=== PATIENT | male | born 1950 | race Caucasian/White ===

== ENCOUNTER → 2017-09-25 | Outpatient (CLI) | payer MEDICARE ==
[2017-09-25 14:50] LABS: Blood Urea Nitrogen 19 mg/dL (9-20); Non-African American GFR(MDRD) >60 (>60 ml/min/1.73 sqM)
--- NOTE | 2017-09-25 17:10 | CT ---
EXAMINATION TYPE: CT abdomen pelvis w con DATE OF EXAM: 09/25/2017 COMPARISON: 10/18/2015 HISTORY: 67-year-old male with generalized pain with bowel changes TECHNIQUE: Contiguous axial scanning of the abdomen and pelvis following administration of 100 ml Omn ipaque 300 IV contrast. Delayed images through the kidneys and coronal/sagittal reconstructions perf ormed. CT DLP: 2555 mGycm Automated exposure control for dose reduction was used. FINDINGS: The heart is normal size without pericardial effusion. Chronic scarring and volume loss at the medial lung bases with associated mild bronchiectasis. No pleural effusion. Stable 2.4 cm hypodense lesion peripheral right liver. Stability suggests a benign etiology. Portal v enous system is patent. No biliary ductal dilatation. Cholecystectomy clips are present. Stable 1.7 cm left adrenal nodule. Right adrenal gland, kidneys, and spleen appear within normal limi ts. Splenomegaly 17.1 cm is unchanged. No dilated small bowel, free fluid, or free air. Mild sigmoid diverticulosis. No pericolonic inflammatory change. No mesenteric or retroperitoneal lymphadenopathy. Bladder is urine distended. Prostate gland mildly enlarged at 6.0 cm wide. No abnormal fluid collecti on in the pelvis or pelvic lymphadenopathy. Bones: Degenerative changes at the hips and degenerative bridging ankylosis at the SI joints. Degener ative disc disease mid to lower lumbar spine. No osseous destructive process. IMPRESSION: 1. STABLE 2.4 CM LESION RIGHT LIVER LOBE. STABILITY SUGGESTS A BENIGN ETIOLOGY. SCLEROSED HEMANGIOMA REMAINS THE FAVORED DIFFERENTIAL. 2. MILD SIGMOID DIVERTICULOSIS WITHOUT ACUTE DIVERTICULITIS. 3. UNCHANGED SPLENOMEGALY. 4. PROSTATOMEGALY (6.0 CM) AND STABLE 1.7 CM LEFT ADRENAL ADENOMA.
== END | disposition home or self-care (01) ==
LOC: RADCTMAIN 14:08
PROVIDERS: ATTEND Family Medicine
DX: D35.02 Benign neoplasm of left adrenal gland (principal); N40.0 Benign prostatic hyperplasia without lower urinary tract symptoms; K76.89 Other specified diseases of liver; K57.30 Diverticulosis of large intestine without perforation or abscess without bleeding; R16.1 Splenomegaly, not elsewhere classified
CPT/HCPCS: 82565; 84520; 74177; 36415; Q9967

== ENCOUNTER 2019-04-02 16:45 | Inpatient (IN) | payer MEDICARE ==
[2019-04-02] MEDS ORDERED: cefTRIAXone IN SWFI 1,000 MG/10 ML SYRINGE IVP STA (17:56)
--- NOTE | 2019-04-02 18:35 | XR ---
EXAMINATION TYPE: XR foot complete bilateral DATE OF EXAM: 04/02/2019 COMPARISON: NONE HISTORY: Foot infection TECHNIQUE: 3 views each foot FINDINGS: There is narrowing and spurring at the first MP joints bilaterally. There is some spurring at the right second MP joint. Metatarsals are intact. I see no fracture nor dislocation. There is a l arge left side Achilles calcaneal spur. There are small left-sided plantar calcaneal spur. There is s imilar change on the right side also. There is vascular calcification. IMPRESSION: Osteoarthritis. Vascular calcification. No fracture. No evidence of osteomyelitis.
[2019-04-02 18:40] LABS: Basophils # (A) 0.1 k/uL (0-0.2); Basophils % (A) 1 %; Eosinophils # (A) 0.3 k/uL (0-0.7); Eosinophils % (A) 4 %; HCT 44.8 % (39.0-53.0); HGB 14.9 gm/dL (13.0-17.5); Lymphocytes # (A) 1.9 k/uL (1.0-4.8); Lymphocytes % (A) 22 %; MCH 28.9 pg (25.0-35.0); MCHC 33.3 g/dL (31.0-37.0); MCV 86.7 fL (80.0-100.0); Mean Platelet Volume 7.2; Monocytes # (A) 0.4 k/uL (0-1.0); Monocytes % (A) 5 %; Neutrophils # (A) 5.6 k/uL (1.3-7.7); Neutrophils % (A) 67 %; Platelet Count 174 k/uL (150-450); Poikilocytosis Slight; RBC 5.17 m/uL (4.30-5.90); RDW 15.4 % (11.5-15.5); WBC 8.4 k/uL (3.8-10.6)
[2019-04-02 18:59] LABS: ALT 33 U/L (21-72); AST 25 U/L (17-59); Albumin 3.9 g/dL (3.5-5.0); Alkaline Phosphatase 105 U/L (38-126); Anion Gap 7 mmol/L; Blood Urea Nitrogen 16 mg/dL (9-20); Calcium 9.5 mg/dL (8.4-10.2); Carbon Dioxide 33 mmol/L (22-30); Chloride 102 mmol/L (98-107); Glucose 138 mg/dL (74-99); Potassium 4.1 mmol/L (3.5-5.1); Sodium 142 mmol/L (137-145); Total Bilirubin 0.9 mg/dL (0.2-1.3); Total Protein 6.8 g/dL (6.3-8.2)
--- NOTE | 2019-04-02 19:19 | ED ---
Extremity Problem HPI - General Chief complaint: Extremity Problem,Nontraumatic Stated complaint: Infection Time Seen by Provider: 04/02/19 17:39 Source: patient Mode of arrival: wheelchair Limitations: physical limitation - History of Present Illness Initial comments: 68-year-old male patient presents to the emergency department today sent by his property administrator for evaluation of wounds to the bilateral feet. Patient states he has had the wounds to both heels for over a month. Patient states he has been receiving wound care from his property administrator. States that they sent him in due to worsening of the wounds, and seeming infection of the wounds. Patient states he does have mild discomfort to both heels. Denies any fever or chills with this. Denies any significant swelling to the feet. Patient states he has been having yellow discharge present on both dressings. Patient does have history of diabetes. Patient denies any recent rash, shortness breath, chest pain, abdominal pain, nausea, vomiting, diarrhea, constipation, back pain, numbness, tingling, dizziness, weakness, hematuria, dysuria, urinary urgency, urinary frequency, headache, visual changes, or any other complaints. - Related Data Home Medications Medication Instructions Recorded Confirmed Allopurinol 300 mg PO HS 11/13/15 04/02/19 Glimepiride [Amaryl] 4 mg PO BID 11/13/15 04/02/19 metFORMIN HCL 1,000 mg PO BID 11/13/15 04/02/19 Aspirin 81 mg PO HS 04/02/19 04/02/19 Atorvastatin [Lipitor] 40 mg PO HS 04/02/19 04/02/19 Ergocalciferol (Vitamin D2) 50,000 unit PO Q30D 04/02/19 04/02/19 [Vitamin D2] Furosemide [Lasix] 40 mg PO DAILY 04/02/19 04/02/19 HYDROcodone/APAP 5-325MG [[place] 1 tab PO DAILY PRN 04/02/19 04/02/19 5-325] L.acidoph,Paracasei, B.lactis 1 cap PO DAILY 04/02/19 04/02/19 [Probiotic] Lisinopril 40 mg PO HS 04/02/19 04/02/19 Unknown Insulin 1 dose SQ DIRECTED 04/02/19 04/02/19 Allergies Allergy/AdvReac Type Severity Reaction Status Date / Time Horse/Equine Containing Allergy Unknown Verified 04/02/19 18:42 Products Childhood Review of Systems ROS Statement: Those systems with pertinent positive or pertinent negative responses have been documented in the HPI. ROS Other: All systems not noted in ROS Statement are negative. Past Medical History Past Medical History: Diabetes Mellitus, Hypertension Additional Past Medical History / Comment(s): gout, PALPITATIONS, PSORIASES History of Any Multi-Drug Resistant Organisms: None Reported Past Surgical History: Orthopedic Surgery Additional Past Surgical History / Comment(s): ermias hand- TENDON/LIGAMENT SX ,LT knee scope Past Anesthesia/Blood Transfusion Reactions: No Reported Reaction Past Psychological History: No Psychological Hx Reported Smoking Status: Never smoker Past Alcohol Use History: Occasional Past Drug Use History: None Reported - Past Family History Father Additional Family Medical History / Comment(s): emphysema Mother Additional Family Medical History / Comment(s): age 92 from old old General Exam Limitations: physical limitation General appearance: alert, in no apparent distress, other (Physical well- developed, well-nourished adult male patient in no acute distress. Vital signs upon presentation are temperature 98.3F, pulse 92, respirations 18, blood pressure 152/84, pulse ox 96% on room air.) Eye exam: Present: normal appearance, PERRL, EOMI. Absent: scleral icterus, conjunctival injection, periorbital swelling ENT exam: Present: normal exam, normal oropharynx, mucous membranes moist Respiratory exam: Present: normal lung sounds bilaterally. Absent: respiratory distress, wheezes, rales, rhonchi, stridor Cardiovascular Exam: Present: regular rate, normal rhythm, normal heart sounds. Absent: systolic murmur, diastolic murmur, rubs, gallop, clicks GI/Abdominal exam: Present: soft, normal bowel sounds. Absent: distended, tenderness, guarding, rebound, rigid Extremities exam: Present: normal inspection, full ROM, normal capillary refill, other (There are ulcers noted to bilateral heels. Basilar block at the center. There is yellow discharge noted from both. Remainder of skin is pink, warm, dry. Cap refills less than 3 seconds. Pedal pulses 2+ and equal bilaterally.). Absent: tenderness, pedal edema, joint swelling, calf tenderness Neurological exam: Present: alert, oriented X3, CN II-XII intact Psychiatric exam: Present: normal affect, normal mood Skin exam: Present: warm, dry, intact, normal color. Absent: rash Course Vital Signs 04/02/19 04/02/19 17:07 20:23 Temperature 98.3 F 98.1 F Pulse Rate 92 99 Respiratory 18 18 Rate Blood Pressure 152/84 164/88 O2 Sat by Pulse 96 98 Oximetry Medical Decision Making - Medical Decision Making 68-year-old male patient presented to the emergency department today for evaluation of wounds to the bilateral heels. Patient was sent by his property administrator for admission and IV antibiotics or worsening of the wounds and infection. Labs reviewed and are unremarkable. Patient was started on Rocephin. We'll admit for evaluation by wound care and continued antibiotics. - Lab Data Result diagrams: 04/02/19 18:23 04/02/19 18:23 Lab Results 04/02/19 04/02/19 Range/Units 18:23 18:23 WBC 8.4 (3.8-10.6) k/uL RBC 5.17 (4.30-5.90) m/uL Hgb 14.9 (13.0-17.5) gm/dL Hct 44.8 (39.0-53.0) % MCV 86.7 (80.0-100.0) fL MCH 28.9 (25.0-35.0) pg MCHC 33.3 (31.0-37.0) g/dL RDW 15.4 (11.5-15.5) % Plt Count 174 (150-450) k/uL Neutrophils % 67 % Lymphocytes % 22 % Monocytes % 5 % Eosinophils % 4 % Basophils % 1 % Neutrophils # 5.6 (1.3-7.7) k/uL Lymphocytes # 1.9 (1.0-4.8) k/uL Monocytes # 0.4 (0-1.0) k/uL Eosinophils # 0.3 (0-0.7) k/uL Basophils # 0.1 (0-0.2) k/uL Poikilocytosis Slight Sodium 142 (137-145) mmol/L Potassium 4.1 (3.5-5.1) mmol/L Chloride 102 (98-107) mmol/L Carbon Dioxide 33 H (22-30) mmol/L Anion Gap 7 mmol/L BUN 16 (9-20) mg/dL Creatinine 0.58 L (0.66-1.25) mg/dL Est GFR (CKD-EPI)AfAm >90 (>60 ml/min/1.73 sqM) Est GFR (CKD-EPI)NonAf >90 (>60 ml/min/1.73 sqM) Glucose 138 H (74-99) mg/dL Calcium 9.5 (8.4-10.2) mg/dL Total Bilirubin 0.9 (0.2-1.3) mg/dL AST 25 (17-59) U/L ALT 33 (21-72) U/L Alkaline Phosphatase 105 (38-126) U/L Total Protein 6.8 (6.3-8.2) g/dL Albumin 3.9 (3.5-5.0) g/dL - Radiology Data Radiology results: report reviewed, image reviewed 3 views of each foot are obtained. Report was reviewed in its entirety. Impression by Dr. Morris shows osteoarthritis. Vascular calcification. No fracture. No evidence of osteomyelitis. Disposition Clinical Impression: Diabetic foot ulcers Disposition: [facility] Condition: Serious Decision to Admit Reason: Admit from EC Decision Date: 04/02/19 Decision Time: 19:45
[2019-04-02] MEDS ORDERED: NALOXONE 0.4 MG/ML 1 ML VIAL IV PRN (19:42)
--- NOTE | 2019-04-02 20:47 | HP ---
HISTORY AND PHYSICAL CHIEF COMPLAINT: Ulcers on the bottom of both heels. HISTORY OF PRESENT ILLNESS: This is the first admission for this 68-year-old obese white male. He has type 2 diabetes mellitus with poor control, and up until recently he has been quite noncompliant. He has always been overweight. He was referred to a business line manager recently for foot care, where he was found to have tinea pedis and onychomycosis. He was also found to have diabetic ulcers on the bottom of each heel, and they were being addressed by the business line manager until he saw them getting worse and sent him to the ER. REVIEW OF SYSTEMS: He has had no fever, chills, particularly unusual pain, etc. He does have sensation in the heels. He has had no headaches, CVAs, shortness of breath, chest pain, heart disease, abdominal pain, renal failure, etc. Past medical history, family history, and personal and social histories reveal that he is on: 1. Allopurinol. 2. Aspirin. 3. Lasix. 4. Vicodin. 5. Lisinopril. He does not smoke or drink. He used to drink heavily. PHYSICAL EXAMINATION: Blood pressure is 152/84, pulse 92, respirations of 18 and temperature is 98.3. In general he appeared to be slightly overweight and in no acute distress. Skin color was normal. Skin was warm and dry. Lymph nodes were not enlarged. Head, ears, eyes, nose, mouth and throat were normal. Neck veins were not distended. Thyroid was not enlarged. CHEST: Clear. Cardiac exam was normal. The abdomen was protuberant, soft, nontender. Extremities demonstrated scaly dermatitis of the feet with onychomycosis and two large stage IV decubitus ulcers on the bottom on each heel. Peripheral circulation appeared to be adequate. Neurologically he was intact. He is admitted to the hospital with the diagnoses: 1. Stage IV diabetic ulcers on the bottom of each heel. 2. Hypertension. 3. Type 2 diabetes mellitus. PLAN: 1. Bed rest. 2. IV fluids. 3. IV antibiotics. 4. Infectious disease and vascular surgery consults. MMODL / IJN: [id number] /
[2019-04-02] MEDS ORDERED: INSULIN ASPART (NovoLOG) 100 UNIT/ML VIAL SQ SCH (21:00)
[2019-04-02] MEDS: ASPIRIN 81 MG PO SCH (21:33)
[2019-04-02] MEDS: ALLOPURINOL 300 MG TAB PO SCH (21:33)
[2019-04-02] MEDS: LISINOPRIL 20 MG TAB PO SCH (21:34)
[2019-04-02 21:59] LABS: Glucose,Whole Blood 142 mg/dL (75-99)
[2019-04-02] MEDS: INSULIN ASPART (NovoLOG) 100 UNIT/ML VIAL SQ SCH (21:59)
[2019-04-03 07:11] LABS: Glucose,Whole Blood 133 mg/dL (75-99)
[2019-04-03] MEDS: FUROSEMIDE 40 MG TAB PO SCH (08:22)
[2019-04-03] MEDS: INSULIN ASPART (NovoLOG) 100 UNIT/ML VIAL SQ SCH ×4 (08:25→20:27)
--- NOTE | 2019-04-03 10:52 | P.GSCN ---
History of Present Illness Consult date: 04/03/19 Reason for Consult: Bilateral diabetic foot ulcers Requesting physician: Octavio Cottrell History of present illness: This 68-year-old diabetic male was under treatment for athlete's foot. 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 He stayed in his foot bath for an hour and a half with pressure on his heels. He subsequently developed necrotic areas on the plantar aspect of both heels. His description of his diabetes sounds like his control is fairly poor. He states his blood sugars are under 170 generally but his hemoglobin A1c levels are high. He denies pain. These ulcers have been present for over a month. Review of Systems All systems: negative - Constitutional Denies fever, Denies weight loss - EENT Eyes: denies blurred vision Ears, nose, mouth and throat: Denies dysphagia - Cardiovascular Denies chest pain, Denies shortness of breath - Respiratory Denies cough, Denies 7 - Gastrointestinal Reports as per HPI - Genitourinary Denies dysuria, Denies hematuria - Musculoskeletal Musculoskeleta Comment(s): Diabetic neuropathy - Integumentary Denies rash, Denies unusual bruising - Neurological Neurologic Comment(s): Bilateral diabetic foot neuropathy Reports sensory deficit, Denies headaches, Denies syncope - Hematologic/Lymphatic Denies easy bleeding, Denies easy bruising Past Medical History Past Medical History: Diabetes Mellitus, Hyperlipidemia, Hypertension Additional Past Medical History / Comment(s): gout, PALPITATIONS, PSORIASES History of Any Multi-Drug Resistant Organisms: None Reported Past Surgical History: Cholecystectomy, Orthopedic Surgery Additional Past Surgical History / Comment(s): ermias hand- TENDON/LIGAMENT SX ,LT knee scope Past Anesthesia/Blood Transfusion Reactions: No Reported Reaction Past Psychological History: No Psychological Hx Reported Smoking Status: Never smoker Past Alcohol Use History: Occasional Past Drug Use History: None Reported - Past Family History Father Additional Family Medical History / Comment(s): emphysema Mother Additional Family Medical History / Comment(s): age 92 from old old Medications and Allergies Home Medications Medication Instructions Recorded Confirmed Type Allopurinol 300 mg PO HS 11/13/15 04/02/19 History Glimepiride [Amaryl] 4 mg PO BID 11/13/15 04/02/19 History metFORMIN HCL 1,000 mg PO BID 11/13/15 04/02/19 History Aspirin 81 mg PO HS 04/02/19 04/02/19 History Atorvastatin [Lipitor] 40 mg PO HS 04/02/19 04/02/19 History Ergocalciferol (Vitamin D2) 50,000 unit PO Q30D 04/02/19 04/02/19 History [Vitamin D2] Furosemide [Lasix] 40 mg PO DAILY 04/02/19 04/02/19 History HYDROcodone/APAP 5-325MG [[place] 1 tab PO DAILY PRN 04/02/19 04/02/19 History 5-325] L.acidoph,Paracasei, B.lactis 1 cap PO DAILY 04/02/19 04/02/19 History [Probiotic] Lisinopril 40 mg PO HS 04/02/19 04/02/19 History Semaglutide [Ozempic] 0.25 mg SQ Q7D 04/03/19 04/03/19 History Allergies Allergy/AdvReac Type Severity Reaction Status Date / Time Horse/Equine Containing Allergy Unknown Verified 04/02/19 18:42 Products Childhood Surgical - Exam Osteopathic Statement: *. No significant issues noted on an osteopathic struct ural exam other than those noted in the History and Physical/Consult. Vital Signs Temp Pulse Resp BP Pulse Ox 98.3 F 92 18 152/84 96 04/02/19 17:07 04/02/19 17:07 04/02/19 17:07 04/02/19 17:07 04/02/19 17:07 - General well developed, well nourished, no distress, obese - Eyes normal ocular movement, no icteric - ENT no hearing loss, no congestion - Neck no masses, no bruits, trachea midline - Respiratory normal expansion, normal respiratory effort, clear to auscultation - Cardiovascular Rhythm: regular - Abdomen Abdomen: soft, non tender, no guarding, no rigid, no rebound - Integumentary Ulcers on the plantar aspect of both heels. Both are about 7 x 5 cm in diameter. There is significant eschar and nonviable tissue. no rash, no abnormal pigmentation - Neurologic no disoriented, no combative - Psychiatric oriented to time, oriented to person, oriented to place, speech is normal, memory intact Results - Labs 04/02/19 18:23 04/02/19 18:23 Abnormal Lab Results - Last 24 Hours (Table) 04/02/19 04/02/19 04/03/19 Range/Units 18:23 21:57 07:10 Carbon Dioxide 33 H (22-30) mmol/L Creatinine 0.58 L (0.66-1.25) mg/dL Glucose 138 H (74-99) mg/dL POC Glucose (mg/dL) 142 H 133 H (75-99) mg/dL Microbiology - Last 24 Hours (Table) 04/02/19 18:52 Gram Stain - Preliminary Foot - Left Wound Culture - Preliminary 04/02/19 18:52 Gram Stain - Preliminary Foot - Right Wound Culture - Preliminary Diabetes panel 04/02/19 Range/Units 18:23 Sodium 142 (137-145) mmol/L Potassium 4.1 (3.5-5.1) mmol/L Chloride 102 (98-107) mmol/L Carbon Dioxide 33 H (22-30) mmol/L BUN 16 (9-20) mg/dL Creatinine 0.58 L (0.66-1.25) mg/dL Glucose 138 H (74-99) mg/dL Calcium 9.5 (8.4-10.2) mg/dL AST 25 (17-59) U/L ALT 33 (21-72) U/L Alkaline Phosphatase 105 (38-126) U/L Total Protein 6.8 (6.3-8.2) g/dL Albumin 3.9 (3.5-5.0) g/dL Calcium panel 04/02/19 Range/Units 18:23 Calcium 9.5 (8.4-10.2) mg/dL Albumin 3.9 (3.5-5.0) g/dL Pituitary panel 04/02/19 Range/Units 18:23 Sodium 142 (137-145) mmol/L Potassium 4.1 (3.5-5.1) mmol/L Chloride 102 (98-107) mmol/L Carbon Dioxide 33 H (22-30) mmol/L BUN 16 (9-20) mg/dL Creatinine 0.58 L (0.66-1.25) mg/dL Glucose 138 H (74-99) mg/dL Calcium 9.5 (8.4-10.2) mg/dL Adrenal panel 04/02/19 Range/Units 18:23 Sodium 142 (137-145) mmol/L Potassium 4.1 (3.5-5.1) mmol/L Chloride 102 (98-107) mmol/L Carbon Dioxide 33 H (22-30) mmol/L BUN 16 (9-20) mg/dL Creatinine 0.58 L (0.66-1.25) mg/dL Glucose 138 H (74-99) mg/dL Calcium 9.5 (8.4-10.2) mg/dL Total Bilirubin 0.9 (0.2-1.3) mg/dL AST 25 (17-59) U/L ALT 33 (21-72) U/L Alkaline Phosphatase 105 (38-126) U/L Total Protein 6.8 (6.3-8.2) g/dL Albumin 3.9 (3.5-5.0) g/dL Assessment and Plan (1) Diabetic foot ulcer associated with type 2 diabetes mellitus Current Visit: Yes Status: Acute Code(s): E11.621 - TYPE 2 DIABETES MELLITUS WITH FOOT ULCER; L97.509 - NON-PRESSURE CHRONIC ULCER OTH PRT UNSP FOOT W UNSP SEVERITY SNOMED Code(s): 613008415 (2) Pressure ulcer of right foot, stage 3 Current Visit: Yes Status: Acute Code(s): L89.893 - PRESSURE ULCER OF OTHER SITE, STAGE 3 SNOMED Code(s): 297208268 (3) Pressure ulcer of left foot, stage 3 Current Visit: Yes Status: Acute Code(s): L89.893 - PRESSURE ULCER OF OTHER SITE, STAGE 3 SNOMED Code(s): 570058883 (4) Obesity (BMI 30-39.9) Current Visit: Yes Status: Acute Code(s): E66.9 - OBESITY, UNSPECIFIED SNOMED Code(s): 959313877 Plan: I discussed with the patient multiple issues involved in his healing process. #1 we will need to debridement both feet. We will start with Santyl dressing to soften them and will need to in the near future proceed with surgical debridement. #2 we will need to figure out a way to achieve offloading on both heels. He will need to exercise most of his mobility in a wheelchair. Any activities such as going to the bathroom will need to try to limit pressure to both forefeet. We may consider bilateral total contact casts. This would require significant help with any transferring and he would not be able to drive at all. Another option would be to focus on one heel at a time. However, the size of these ulcers means that the healing of each will require at least 2-3 months. We discussed the correlation of these ulcers with his diabetes and his obesity. We've recommended he follow with primary care for attention to both of these issues. We will also get arterial Dopplers to assess vascular status. He has a palpable pulse on his left foot but nonpalpable on the right.
[2019-04-03 12:39] LABS: Glucose,Whole Blood 227 mg/dL (75-99)
[2019-04-03] MEDS: COLLAGENASE 250 UNIT/GM OINTMENT 30 GM TUBE TOPICAL SCH (12:50)
[2019-04-03 13:28] VITALS: BMI 37.2
--- NOTE | 2019-04-03 17:24 | P.CONS ---
History of Present Illness - Reason for Consult Consult date: 04/03/19 - Chief Complaint foot ulcers - History of Present Illness 68-year-old male who has multiple medical troubles including a long- standing history of diabetes was having difficulties with his feet. He was seen by his spout tender and was told that he could soak his feet for short periods of time to help soften his calluses. The patient had a foot bath and soaked his feet for about an hour and a half, he was watching TV. He has significant neuropathy and didn't realize any acute cause significant injury to his bilateral heels from the way he was sitting. He has developed eschars the bila teral heel area and with some cellulitis who presents to Hospital for further intervention. The patient this time has no pain at the area because he is insensate. And he is denying high-grade fevers chills rigors or sweats at this time. Review of Systems HEENT patient denies sinus her mouth discomfort. No dysphagia. No oral pain. No neck stiffness or lymphadenopathy Lungs patient denies shortness of breath cough or sputum production no hemoptysis Heart patient denies chest pain or pressure. He is not having dyspnea on exertion, orthopnea, or syncope Abdomen patient denies abdominal pain, denies nausea vomiting constipation or diarrhea. Denies hematemesis melena or hematochezia Extremities patient denies pain or swelling to the upper extremities. Patient as per the history of present illness has difficulties with the ulcerations to the bilateral heels but does not have ongoing difficulties with edema Neuro patient denies dizziness, or new deficits Past Medical History Past Medical History: Diabetes Mellitus, Hyperlipidemia, Hypertension Additional Past Medical History / Comment(s): gout, PALPITATIONS, PSORIASES History of Any Multi-Drug Resistant Organisms: None Reported Past Surgical History: Cholecystectomy, Orthopedic Surgery Additional Past Surgical History / Comment(s): ermias hand- TENDON/LIGAMENT SX ,LT knee scope Past Anesthesia/Blood Transfusion Reactions: No Reported Reaction Past Psychological History: No Psychological Hx Reported Additional Psychological History / Comment(s): single and lives independently. retired from manufacturing. No experience. no animals. Not a current tobacco smoker. No international travel. 1 adult child Smoking Status: Never smoker Past Alcohol Use History: Occasional Past Drug Use History: None Reported - Past Family History Father Additional Family Medical History / Comment(s): emphysema Mother Additional Family Medical History / Comment(s): age 92 from old old Medications and Allergies Home Medications and Allergies Comment(s): Current Medications Hydrocodone Bitart/Acetaminophen (Mohawk 5-325) 1 each PO DAILY PRN PRN Reason: Pain Allopurinol (Zyloprim) 300 mg PO [facility] Last Admin: 04/02/19 21:33 Dose: Not Given Documented by: Aspirin (Aspirin) 81 mg PO [facility] Last Admin: 04/02/19 21:33 Dose: Not Given Documented by: Collagenase (Santyl) 1 applic TOPICAL DAILY [facility] Last Admin: 04/03/19 12:50 Dose: 1 applic Documented by: Furosemide (Lasix) 40 mg PO DAILY [facility] Last Admin: 04/03/19 08:22 Dose: 40 mg Documented by: Insulin Aspart (Novolog) 0 unit SQ [facility]; Protocol Last Admin: 04/03/19 12:50 Dose: 5 unit Documented by: Lisinopril (Zestril) 40 mg PO [facility] Last Admin: 04/02/19 21:34 Dose: Not Given Documented by: Naloxone HCl (Narcan) 0.2 mg IV Q2M PRN PRN Reason: Opioid Reversal Home Medications Medication Instructions Recorded Confirmed Type Allopurinol 300 mg PO HS 11/13/15 04/02/19 History Glimepiride [Amaryl] 4 mg PO BID 11/13/15 04/02/19 History metFORMIN HCL 1,000 mg PO BID 11/13/15 04/02/19 History Aspirin 81 mg PO HS 04/02/19 04/02/19 History Atorvastatin [Lipitor] 40 mg PO HS 04/02/19 04/02/19 History Ergocalciferol (Vitamin D2) 50,000 unit PO Q30D 04/02/19 04/02/19 History [Vitamin D2] Furosemide [Lasix] 40 mg PO DAILY 04/02/19 04/02/19 History HYDROcodone/APAP 5-325MG [Mohawk 1 tab PO DAILY PRN 04/02/19 04/02/19 History 5-325] L.acidoph,Paracasei, B.lactis 1 cap PO DAILY 04/02/19 04/02/19 History [Probiotic] Lisinopril 40 mg PO HS 04/02/19 04/02/19 History Semaglutide [Ozempic] 0.25 mg SQ Q7D 04/03/19 04/03/19 History Allergies Allergy/AdvReac Type Severity Reaction Status Date / Time Horse/Equine Containing Allergy Unknown Verified 04/02/19 18:42 Products Childhood Physical Exam Vitals: Vital Signs Temp Pulse Pulse Resp BP BP Pulse Ox 04/03/19 13:17 97.8 F 108 H 16 180/96 93 L 04/03/19 04:48 97.6 F 102 H 16 159/84 94 L 04/02/19 21:26 98.1 F 101 H 161/85 96 04/02/19 20:23 98.1 F 99 18 164/88 98 Intake and Output 04/03/19 04/03/19 04/03/19 06:59 14:59 22:59 Intake Total 590 Balance 590 Intake: Oral 590 Other: # Voids 1 2 # Bowel Movements 1 Weight 131.542 kg HEENT: Anicteric, conjunctiva are pink and moist, nasal or oral mucosa are without lesion. The neck is supple without lymphadenopathy or thyromegaly. No oral thrush is noted. Lungs: good bilateral air entry, there are no significant crackles or wheezes, no bronchial sounds or egophony. Heart: Regular rate and rhythm with an audible S1-S2, no S3 or S4 noted. No significant murmur click or rub noted. Abdomen: Positive bowel sounds, soft and nontender, there is no palpable masses or organomegaly. Abdomen is without guarding or rebound. Extremities:Upper extremities reveal evidence of equal pulses, no lesions are seen, no petechiae or telangiectasia. The lower extremities have no significant edema, peripheral pulses were 2+ and symmetric, Capillary refill was brisk. Skin: evidence of the bilateral heel ulcerations, approximately 4 x 4 centimeters both heels with eschar in place some surrounding erythema is seen Neuro:Awake and alert, oriented to person place and time. No gross focal sensory motor deficits noted. Musculoskeletal: Patient is ambulatory No acute joint effusions are noted. Lymph: No cervical, supraclavicular, axillary, epitrochlear, or inguinal lymphadenopathy was noted. Results CBC & Chem 7: 04/02/19 18:23 04/02/19 18:23 Labs: Abnormal Lab Results - Last 24 Hours (Table) 04/02/19 04/02/19 04/03/19 Range/Units 18:23 21:57 07:10 Carbon Dioxide 33 H (22-30) mmol/L Creatinine 0.58 L (0.66-1.25) mg/dL Glucose 138 H (74-99) mg/dL POC Glucose (mg/dL) 142 H 133 H (75-99) mg/dL 04/03/19 Range/Units 12:38 Carbon Dioxide (22-30) mmol/L Creatinine (0.66-1.25) mg/dL Glucose (74-99) mg/dL POC Glucose (mg/dL) 227 H (75-99) mg/dL Microbiology - Last 24 Hours (Table) 04/02/19 18:52 Gram Stain - Preliminary Foot - Left Wound Culture - Preliminary 04/02/19 18:52 Gram Stain - Preliminary Foot - Right Wound Culture - Preliminary Laboratory Results WBC 8.4 k/uL (3.8-10.6) 04/02/19 18:23 RBC 5.17 m/uL (4.30-5.90) 04/02/19 18:23 Hgb 14.9 gm/dL (13.0-17.5) 04/02/19 18:23 Hct 44.8 % (39.0-53.0) 04/02/19 18:23 MCV 86.7 fL (80.0-100.0) 04/02/19 18:23 MCH 28.9 pg (25.0-35.0) 04/02/19 18:23 MCHC 33.3 g/dL (31.0-37.0) 04/02/19 18:23 RDW 15.4 % (11.5-15.5) 04/02/19 18:23 Plt Count 174 k/uL (150-450) 04/02/19 18:23 Neutrophils % 67 % 04/02/19 18:23 Lymphocytes % 22 % 04/02/19 18:23 Monocytes % 5 % 04/02/19 18:23 Eosinophils % 4 % 04/02/19 18:23 Basophils % 1 % 04/02/19 18:23 Neutrophils # 5.6 k/uL (1.3-7.7) 04/02/19 18:23 Lymphocytes # 1.9 k/uL (1.0-4.8) 04/02/19 18:23 Monocytes # 0.4 k/uL (0-1.0) 04/02/19 18:23 Eosinophils # 0.3 k/uL (0-0.7) 04/02/19 18:23 Basophils # 0.1 k/uL (0-0.2) 04/02/19 18:23 Poikilocytosis Slight 04/02/19 18:23 Sodium 142 mmol/L (137-145) 04/02/19 18:23 Potassium 4.1 mmol/L (3.5-5.1) 04/02/19 18:23 Chloride 102 mmol/L (98-107) 04/02/19 18:23 Carbon Dioxide 33 mmol/L (22-30) H 04/02/19 18:23 Anion Gap 7 mmol/L 04/02/19 18:23 BUN 16 mg/dL (9-20) 04/02/19 18:23 Creatinine 0.58 mg/dL (0.66-1.25) L 04/02/19 18:23 Est GFR (CKD-EPI)AfAm >90 (>60 ml/min/1.73 sqM) 04/02/19 18:23 Est GFR (CKD-EPI)NonAf >90 (>60 ml/min/1.73 sqM) 04/02/19 18:23 Glucose 138 mg/dL (74-99) H 04/02/19 18:23 POC Glucose (mg/dL) 227 mg/dL (75-99) H 04/03/19 12:38 POC Glu Law Enforcement Officer ID [place] 04/03/19 12:38 Calcium 9.5 mg/dL (8.4-10.2) 04/02/19 18:23 Total Bilirubin 0.9 mg/dL (0.2-1.3) 04/02/19 18:23 AST 25 U/L (17-59) 04/02/19 18:23 ALT 33 U/L (21-72) 04/02/19 18:23 Alkaline Phosphatase 105 U/L (38-126) 04/02/19 18:23 Total Protein 6.8 g/dL (6.3-8.2) 04/02/19 18:23 Albumin 3.9 g/dL (3.5-5.0) 04/02/19 18:23 Microbiology 04/02/19 18:52 Foot - Left Gram Stain - Preliminary 04/02/19 18:52 Foot - Left Wound Culture - Preliminary 04/02/19 18:52 Foot - Right Gram Stain - Preliminary 04/02/19 18:52 Foot - Right Wound Culture - Preliminary Assessment and Plan (1) Diabetic foot ulcer associated with type 2 diabetes mellitus Narrative/Plan: 68-year-old male presents to hospital with concerns to his feet because of the onset of bilateral heel ulcerations. As noted the patient soaked his feet for extended period of time and inadvertently caused ulcerations to his bilateral heels. These areas continue to give him difficulties and consequently sought care. He's been seen by vascular surgery. Agree with utilization of Santyl at t his time. Bone scan requested to evaluate for deeper infection. If the patient does have underlying osteomyelitis with the need a course of outpatient intravenous antibiotic therapy. This may be best accomplished in a rehabilitation facility so that he can receive wound care, offloading and antibiotic therapy. Baseline laboratories are requested. We will update his tetanus. Multivitamin requested. Current Visit: Yes Status: Acute Code(s): E11.621 - TYPE 2 DIABETES MELLITUS WITH FOOT ULCER; L97.509 - NON-PRESSURE CHRONIC ULCER OTH PRT UNSP FOOT W UNSP SEVERITY SNOMED Code(s): 714728108 (2) Poorly controlled type 2 diabetes mellitus with complication Current Visit: Yes Status: Acute Code(s): E11.8 - TYPE 2 DIABETES MELLITUS WITH UNSPECIFIED COMPLICATIONS; E11.65 - TYPE 2 DIABETES MELLITUS WITH HYPERGLYCEMIA SNOMED Code(s): 59715604
[2019-04-03] MEDS ORDERED: DIPH,PERTUS(ACELL)TETVAC-LF 0.5 ML VIAL IM ONE (17:25)
[2019-04-03 17:42] LABS: Glucose,Whole Blood 190 mg/dL (75-99)
[2019-04-03] MEDS ORDERED: SEMAGLUTIDE SQ SCH (18:00)
[2019-04-03] MEDS: AMPICILLIN-SULBACTAM 3 GM in SODIUM CHLORIDE 0.9% 100 ML IVPB SCH ×2 (18:18→23:20)
[2019-04-03] MEDS: MULTIVITAMINS, THERA 1 EACH TAB PO SCH (18:19)
--- NOTE | 2019-04-03 19:45 | PN ---
PROGRESS NOTE DATE OF SERVICE: 04/03/2019 CHIEF COMPLAINT: Diabetic ulcers on the bottom heels. HISTORY OF PRESENT ILLNESS: This gentleman is doing fairly well. He has been seen by Infectious Disease and Vascular Surgery. He is going for scans of the heels tomorrow. He has been told that Friday, the heels will be debrided and he will be in bilateral lower leg casts for several weeks. PHYSICAL EXAM: Chest is clear. Cardiac exam is normal. Abdomen is soft and nontender. IMPRESSION: 1. Large diabetic ulcers of the bottom of each heel. 2. Possible underlying osteomyelitis. 3. Hypertension. 4. Type 2 diabetes. PLAN: Continue to follow and manage diabetes in the meantime. MMODL / IJN: [id number] /
[2019-04-03 20:02] LABS: Glucose,Whole Blood 255 mg/dL (75-99)
[2019-04-03] MEDS: ALLOPURINOL 300 MG TAB PO SCH (20:27)
[2019-04-03] MEDS: ASPIRIN 81 MG PO SCH (20:27)
[2019-04-03] MEDS: LISINOPRIL 20 MG TAB PO SCH (20:27)
[2019-04-04] MEDS: AMPICILLIN-SULBACTAM 3 GM in SODIUM CHLORIDE 0.9% 100 ML IVPB SCH ×4 (06:17→23:54)
[2019-04-04 07:19] LABS: Glucose,Whole Blood 169 mg/dL (75-99)
[2019-04-04] MEDS: FUROSEMIDE 40 MG TAB PO SCH (07:57)
[2019-04-04] MEDS: MULTIVITAMINS, THERA 1 EACH TAB PO SCH (07:57)
[2019-04-04] MEDS: INSULIN ASPART (NovoLOG) 100 UNIT/ML VIAL SQ SCH ×4 (07:57→20:27)
--- NOTE | 2019-04-04 10:24 | NM ---
EXAMINATION TYPE: NM bone 3 phase DATE OF EXAM: 04/04/2019 COMPARISON: NONE HISTORY: Triple phase bone scintigraphy was performed following the injection of 23.6 mCi Tc 99m MDP. Immedia te images and 3 hours post injection images acquired. FINDINGS: Flow and pool images are essentially unremarkable. Delayed static images show increased activity in t he right first MTP joint and also several foci within the ankle joints bilaterally. No definite abnor mality is seen in the region of the right heel. There is minimal activity in the inferior calcaneus t his on the left. IMPRESSION: 1. I CANNOT EXCLUDE OSTEOMYELITIS IN THE LEFT CALCANEUS. 2. DEGENERATIVE CHANGE RIGHT FIRST MTP JOINT.
[2019-04-04 11:22] LABS: Glucose,Whole Blood 236 mg/dL (75-99)
[2019-04-04] MEDS: HYDROcodone/APAP 5-325MG 1 EACH TAB PO PRN (11:36)
[2019-04-04] MEDS: COLLAGENASE 250 UNIT/GM OINTMENT 30 GM TUBE TOPICAL SCH (13:47)
[2019-04-04 16:58] LABS: Glucose,Whole Blood 189 mg/dL (75-99)
--- NOTE | 2019-04-04 20:11 | PN ---
PROGRESS NOTE DATE OF SERVICE: 04/04/2019. CHIEF COMPLAINT: Diabetic ulcers of both heels and uncontrolled diabetes. HISTORY OF PRESENT ILLNESS: This gentleman is doing well. He is not having any pain. He is going tomorrow for debridement. Sugars are still high. PHYSICAL EXAM: Chest is clear. Cardiac exam is normal. Abdomen is protuberant and soft. IMPRESSION: 1. Diabetic ulcers of the heels (Staphylococcus). 2. Uncontrolled diabetes. PLAN: 1. Start Levemir. 2. Debridement of both heels tomorrow. MMODL / IJN: [id number] /
[2019-04-04] MEDS: ALLOPURINOL 300 MG TAB PO SCH (20:27)
[2019-04-04] MEDS: INSULIN DETEMIR (LEVEMIR) 100 UNIT/ML SYR SQ SCH (20:27)
[2019-04-04] MEDS: LISINOPRIL 20 MG TAB PO SCH (20:27)
[2019-04-04] MEDS: ASPIRIN 81 MG PO SCH (20:27)
[2019-04-04 20:30] LABS: Glucose,Whole Blood 235 mg/dL (75-99)
[2019-04-05] MEDS: AMPICILLIN-SULBACTAM 3 GM in SODIUM CHLORIDE 0.9% 100 ML IVPB SCH ×2 (06:04→12:39)
[2019-04-05 07:04] LABS: Glucose,Whole Blood 124 mg/dL (75-99)
[2019-04-05] MEDS: INSULIN ASPART (NovoLOG) 100 UNIT/ML VIAL SQ SCH ×4 (07:39→20:30)
[2019-04-05] MEDS: COLLAGENASE 250 UNIT/GM OINTMENT 30 GM TUBE TOPICAL SCH (07:59)
[2019-04-05] MEDS: FUROSEMIDE 40 MG TAB PO SCH (07:59)
[2019-04-05] MEDS: hydrALAZINE HCL 50 MG TAB PO SCH ×3 (07:59→20:31)
[2019-04-05] MEDS ORDERED: LACTATED RINGERS 1,000 ML IV ONE (10:27)
[2019-04-05 10:49] LABS: Glucose,Whole Blood 120 mg/dL (75-99)
[2019-04-05] MEDS ORDERED: PROPOFOL 10 MG/ML 20 ML VIAL IV ONE (11:04)
[2019-04-05] MEDS ORDERED: SUCCINYLCHOLINE CHLORIDE 100 MG/5 ML SYR IV ONE (11:04)
[2019-04-05] MEDS ORDERED: LIDOCAINE 1% INJ 10MG/ML (20 ML MDV) ONE (11:04)
[2019-04-05] MEDS ORDERED: fentaNYL (PF) 50 MCG/ML 2 ML AMP ONE (11:04)
[2019-04-05] MEDS ORDERED: MIDAZOLAM 2 MG/2 ML VIAL ONE (11:04)
[2019-04-05 12:35] LABS: Glucose,Whole Blood 130 mg/dL (75-99)
[2019-04-05] MEDS: MULTIVITAMINS, THERA 1 EACH TAB PO SCH (12:39)
--- NOTE | 2019-04-05 12:56 | PN ---
PROGRESS NOTE DATE OF SERVICE: 04/05/2019 CHIEF COMPLAINT: Bilateral diabetic heel ulcers. HISTORY OF PRESENT ILLNESS: This gentleman is doing well. He is not having a great deal of pain. He is going to be debrided today. PHYSICAL EXAM: Chest is clear. Cardiac exam is normal. The abdomen is protuberant and soft. IMPRESSION: 1. Bilateral plantar diabetic ulcers on the heels. 2. Type 2 insulin dependent diabetes mellitus. PLAN: Debridement of the ulcers on the heels today. MMODL / IJN: [id number] /
--- NOTE | 2019-04-05 15:22 | PCM.SQDEBR ---
Subcutaneous Debridement - Subcutaneous Debridement Date of Service: 04/05/19 Subcutaneous Debridement: Date of service: 04/05/2019 Surgeon: Josefa Pre-and postop diagnosis: Diabetic ulcers bilateral heels with pressure component Type of debridement: Excisional surgical, subcutaneous Chief complaint: ulcer of plantar aspect both heels Anesthesia: General anesthetic Signs of infection: Redness Other material in the wound that is expected to inhibit healing or promote adjacent tissue breakdown: As noted below Degree of epithelialization: [%] Method and instrument: Surgical debridement with scalpel Character of the wound after debridement: Bloody subcutaneous bed Description of necrotic material present: Eschar and necrotic skin and subcutaneous tissue Description of tissue removed: Same Pre-debridement measurement: Right, 4.3 x 3.9 left, 3.2 x 3.0 cm and both are 0.1 cm in depth Postoperative debridement measurement: Right 4.4 x 4, left, 3.5 x 3.1 cm and both are 0.3 cm in depth Specimens disposable only Control of bleeding:[Bleeding was easily controlled with saline moistened gauze and light pressure] Post debridement dressing: Silvadene and Dhaval wrap [Patient tolerated procedure well]
--- NOTE | 2019-04-05 15:26 | P.PN ---
Progress Note - Text Progress Note Date: 04/05/19 Today we performed a subcutaneous debridement removing the necrotic tissue and eschar from both heels. I have discussed in detail with the patient the need for absolute nonweightbearing in these areas. Initially I would recommend continuation of Santyl with dressing changes daily. At some point I would consider placing bilateral total contact casts to assist with protection. I concur with Dr. Lopez that rehab facility would be optimal for assurance of compliance with offloading. We will continue to follow closely in wound care upon discharge.
[2019-04-05] MEDS: ceFAZolin IN SWFI 2 GM/20 ML SYRINGE IVP SCH ×2 (16:39→23:44)
[2019-04-05 17:16] LABS: Glucose,Whole Blood 161 mg/dL (75-99)
[2019-04-05 20:23] LABS: Glucose,Whole Blood 205 mg/dL (75-99)
[2019-04-05] MEDS: HYDROcodone/APAP 5-325MG 1 EACH TAB PO PRN (20:30)
[2019-04-05] MEDS: INSULIN DETEMIR (LEVEMIR) 100 UNIT/ML SYR SQ SCH (20:30)
[2019-04-05] MEDS: ASPIRIN 81 MG PO SCH (20:31)
[2019-04-05] MEDS: ALLOPURINOL 300 MG TAB PO SCH (20:31)
[2019-04-05] MEDS: LISINOPRIL 20 MG TAB PO SCH (20:31)
--- NOTE | 2019-04-06 00:05 | P.PN ---
Subjective Progress Note Date: 04/05/19 68-year-old male who has multiple medical troubles including a long- standing history of diabetes was having difficulties with his feet. He was seen by his java security engineer and was told that he could soak his feet for short periods of time to help soften his calluses. The patient had a foot bath and soaked his feet for about an hour and a half, he was watching TV. He has significant neuropathy and didn't realize any acute cause significant injury to his bilateral heels from the way he was sitting. He has developed eschars the bilateral heel area and with some cellulitis who presents to Hospital for further intervention. The patient this time has no pain at the area because he is insensate. And he is denying high-grade fevers chills rigors or sweats at this time. 04/05/2019 the patient is feeling slightly better. We discussed that his bone scan has returned and there is evidence of osteomyelitis to his left heel at the calcaneus. Intravenous antibiotic therapy will be required and he will likely be going to rehab to receive his therapy and care. Objective - Vital Signs Vital signs: Vital Signs Temp 98.0 F 04/05/19 20:31 Pulse 103 H 04/05/19 20:31 Resp 18 04/05/19 20:31 BP 164/90 04/05/19 20:31 Pulse Ox 91 L 04/05/19 20:31 Intake & Output 04/05/19 04/05/19 04/06/19 06:59 18:59 06:59 Intake Total 350 550 Output Total 10 Balance 350 540 Intake: IV 550 Oral 350 Output: Estimated Blood Loss 10 Other: # Voids 1 2 # Bowel Movements 0 - Exam HEENT: Anicteric, conjunctiva are pink and moist, nasal or oral mucosa are without lesion. The neck is supple without lymphadenopathy or thyromegaly. No oral thrush is noted. Lungs: good bilateral air entry, there are no significant crackles or wheezes, no bronchial sounds or egophony. Heart: Regular rate and rhythm with an audible S1-S2, no S3 or S4 noted. No significant murmur click or rub noted. Abdomen: Positive bowel sounds, soft and nontender, there is no palpable masses or organomegaly. Abdomen is without guarding or rebound. Extremities:Upper extremities reveal evidence of equal pulses, no lesions are seen, no petechiae or telangiectasia. The lower extremities have no significant edema, peripheral pulses were 2+ and symmetric, Capillary refill was brisk. Skin: evidence of the bilateral heel ulcerations, approximately 4 x 4 centimeters both heels with eschar in place some surrounding erythema is seen Neuro:Awake and alert, oriented to person place and time. No gross focal sensory motor deficits noted. Musculoskeletal: Patient is ambulatory No acute joint effusions are noted. Lymph: No cervical, supraclavicular, axillary, epitrochlear, or inguinal lymphadenopathy was noted. - Labs CBC & Chem 7: 04/02/19 18:23 04/02/19 18:23 Labs: Abnormal Lab Results - Last 24 Hours (Table) 04/05/19 04/05/19 04/05/19 Range/Units 07:02 10:40 12:32 POC Glucose (mg/dL) 124 H 120 H 130 H (75-99) mg/dL 04/05/19 04/05/19 Range/Units 17:15 20:22 POC Glucose (mg/dL) 161 H 205 H (75-99) mg/dL Microbiology - Last 24 Hours (Table) 04/02/19 18:23 Blood Culture - Preliminary Blood No Growth after 72 hours Laboratory Results WBC 8.4 k/uL (3.8-10.6) 04/02/19 18: RBC 5.17 m/uL (4.30-5.90) 04/02/19 18:23 Hgb 14.9 gm/dL (13.0-17.5) 04/02/19 18: Hct 44.8 % (39.0-53.0) 04/02/19 18: MCV 86.7 fL (80.0-100.0) 04/02/19 18: MCH 28.9 pg (25.0-35.0) 04/02/19 18: MCHC 33.3 g/dL (31.0-37.0) 04/02/19 18: RDW 15.4 % (11.5-15.5) 04/02/19 18:23 Plt Count 174 k/uL (150-450) 04/02/19 18:23 Neutrophils % 67 % 04/02/19 18:23 Lymphocytes % 22 % 04/02/19 18:23 Monocytes % 5 % 04/02/19 18:23 Eosinophils % 4 % 04/02/19 18:23 Basophils % 1 % 04/02/19 18:23 Neutrophils # 5.6 k/uL (1.3-7.7) 04/02/19 18:23 Lymphocytes # 1.9 k/uL (1.0-4.8) 04/02/19 18:23 Monocytes # 0.4 k/uL (0-1.0) 04/02/19 18:23 Eosinophils # 0.3 k/uL (0-0.7) 04/02/19 18:23 Basophils # 0.1 k/uL (0-0.2) 04/02/19 18:23 Poikilocytosis Slight 04/02/19 18:23 Sodium 142 mmol/L (137-145) 04/02/19 18:23 Potassium 4.1 mmol/L (3.5-5.1) 04/02/19 18:23 Chloride 102 mmol/L (98-107) 04/02/19 18:23 Carbon Dioxide 33 mmol/L (22-30) H 04/02/19 18:23 Anion Gap 7 mmol/L 04/02/19 18:23 BUN 16 mg/dL (9-20) 04/02/19 18:23 Creatinine 0.58 mg/dL (0.66-1.25) L 04/02/19 18:23 Est GFR (CKD-EPI)AfAm >90 (>60 ml/min/1.73 sqM) 04/02/19 18:23 Est GFR (CKD-EPI)NonAf >90 (>60 ml/min/1.73 sqM) 04/02/19 18:23 Glucose 138 mg/dL (74-99) H 04/02/19 18:23 POC Glucose (mg/dL) 205 mg/dL (75-99) H 04/05/19 20:22 POC Glu Jewel Hole Cornerer ID Dye, Nasrin 04/05/19 20:22 Calcium 9.5 mg/dL (8.4-10.2) 04/02/19 18:23 Total Bilirubin 0.9 mg/dL (0.2-1.3) 04/02/19 18:23 AST 25 U/L (17-59) 04/02/19 18:23 ALT 33 U/L (21-72) 04/02/19 18:23 Alkaline Phosphatase 105 U/L (38-126) 04/02/19 18:23 Total Protein 6.8 g/dL (6.3-8.2) 04/02/19 18:23 Albumin 3.9 g/dL (3.5-5.0) 04/02/19 18:23 Microbiology 04/02/19 18:23 Blood Blood Culture - Preliminary No Growth after 72 hours 04/02/19 18:52 Foot - Left Gram Stain - Final 04/02/19 18:52 Foot - Left Wound Culture - Final Staphylococcus aureus 04/02/19 18:52 Foot - Right Gram Stain - Final 04/02/19 18:52 Foot - Right Wound Culture - Final Staphylococcus aureus - Imaging and Cardiology bone scan is reviewed images reveal evidence of the uptake into the calcaneus consistent with osteomyelitis left heel Assessment and Plan (1) Diabetic foot ulcer associated with type 2 diabetes mellitus Narrative/Plan: 68-year-old male presents to hospital with concerns to his feet because of the onset of bilateral heel ulcerations. As noted the patient soaked his feet for extended period of time and inadvertently caused ulcerations to his bilateral heels. These areas continue to give him difficulties and consequently sought care. He's been seen by vascular surgery. Agree with utilization of Santyl at this time. Bone scan requested to evaluate for deeper infection. If the patient does have underlying osteomyelitis with the need a course of outpatient intravenous antibiotic therapy. This may be best accomplished in a rehabilitation facility so that he can receive wound care, offloading and antibiotic therapy. Baseline laboratories are requested. We will update his tetanus. Multivitamin requested. 04/05/2019 patient surgery feels somewhat better. We discussed the bone scan is positive for osteomyelitis to his left heel. Consequently intravenous a ntibiotic therapy with Ancef is requested 2 g every 8 hours planning 6 weeks. The patient will go to rehab to receive local wound care, offloading, physical therapy and antibiotic therapy for his osteomyelitis of the left heel as well as wound care to the right. Orders are in place and placement is waiting. Current Visit: Yes Status: Acute Code(s): E11.621 - TYPE 2 DIABETES MELLITUS WITH FOOT ULCER; L97.509 - NON-PRESSURE CHRONIC ULCER OTH PRT UNSP FOOT W UNSP SEVERITY SNOMED Code(s): 384037987 (2) Poorly controlled type 2 diabetes mellitus with complication Current Visit: Yes Status: Acute Code(s): E11.8 - TYPE 2 DIABETES MELLITUS WITH UNSPECIFIED COMPLICATIONS; E11.65 - TYPE 2 DIABETES MELLITUS WITH HYPERGLYCEMIA SNOMED Code(s): 58502760
[2019-04-06 07:12] LABS: Glucose,Whole Blood 123 mg/dL (75-99)
[2019-04-06] MEDS: INSULIN ASPART (NovoLOG) 100 UNIT/ML VIAL SQ SCH ×4 (07:43→21:59)
[2019-04-06] MEDS: ceFAZolin IN SWFI 2 GM/20 ML SYRINGE IVP SCH ×2 (07:44→14:58)
[2019-04-06] MEDS: hydrALAZINE HCL 50 MG TAB PO SCH ×3 (07:44→21:59)
[2019-04-06] MEDS: MULTIVITAMINS, THERA 1 EACH TAB PO SCH (07:44)
[2019-04-06] MEDS: FUROSEMIDE 40 MG TAB PO SCH (07:44)
[2019-04-06] MEDS: COLLAGENASE 250 UNIT/GM OINTMENT 30 GM TUBE TOPICAL SCH (07:47)
--- NOTE | 2019-04-06 11:54 | CDI ---
Documentation Clarification Form Date: 04/06/2019 11:45:27 AM From: Onelia GillMonsalveBUCK, CCDS Admit Date: 04/02/2019 7:37:00 PM Patient Name: Chris Fischer Visit Number: [id number] Discharge Date: ATTENTION: The Clinical Documentation Specialists (CDI) and [facility] Coding Staff appreciate your assistance in clarifying documentation. Please respond to the clarification below the line at the bottom and electronically sign. The CDI & [facility] Coding staff will review the response and follow-up if needed. Please note: Queries are made part of the Legal Health Record. If you have any questions, please contact the author of this message via ITS. Dr. Israel Lopez: Osteomyelitis has been documented in the 04/05 infectious disease progress note as being evident on the patient's bone scan. History/Risk Factors: Long history of insulin dependent diabetes & difficulty with his feet. Hypertension, Hyperlipidemia. Clinical Indicators: Presented with bilateral heel ulcers & cellulitis. Labs: Glucose 138 X-Ray Results: Bilateral feet: Osteoarthritis, vascular calcification, no evidence of osteomyelitis. 04/04 NM bone scan: Cannot exclude osteomyelitis in left calcanus, Degenerative change right first MTP joint. Treatment: IV Rocephin, IV Ampicillin. Excisional debridement of bilateral heel ulcers by vascular surgeon. In your professional opinion, please specify the following: Acuity of osteomyelitis: o Acute o Chronic o Subacute o Unable to Determine (Last Revision: August 2017) Osteomyelitis is ACUTE in nature MTDD
[2019-04-06 12:05] LABS: Glucose,Whole Blood 167 mg/dL (75-99)
--- NOTE | 2019-04-06 16:51 | IR ---
EXAMINATION TYPE: IR cvc insert >=5 years DATE OF EXAM: 04/06/2019 COMPARISON: NONE CLINICAL HISTORY: Infection Needs long-term intravenous access for antibiotics. PROCEDURE: After informed consent, the skin overlying the left basilic vein was localized with ultrasound and no tana to be compressible and patent. An ultrasound image was obtained and submitted on the patient's c huff. The overlying skin was prepped and draped and Lidocaine was used for local anesthesia. A skin zhanna was made with a scalpel. Access was gained to the vein under ultrasound guidance with a 21 gau ge needle and a 0.018 inch wire was advanced. Access site was dilated with Peel-Away sheath and cath eter tailored to the appropriate length and advanced such that the distal tip is at the cavoatrial ju nction. Spot image was obtained verifying placement. Catheter was fixed to the skin and a sterile d ressing was placed following hemostasis. Catheter was aspirated and flushed with saline. Patient wa s discharged in stable condition without complication. Maximal barrier technique is utilized. Ultras ound image is documented on the chart. Ultrasound used with sterile technique. Fluoro time and fluoroscopic images submitted to document procedure: 0.6 minutes fluoroscopy time, 11 3 intraoperative images IMPRESSION: STATUS POST ULTRASOUND AND FLUOROSCOPIC GUIDED PICC LINE PLACEMENT, READY FOR USE. THIS PROCEDURE WAS PERFORMED BY THE UNDERSIGNED.
[2019-04-06 17:00] LABS: Glucose,Whole Blood 160 mg/dL (75-99)
[2019-04-06 20:30] LABS: Glucose,Whole Blood 214 mg/dL (75-99)
[2019-04-06] MEDS: ALLOPURINOL 300 MG TAB PO SCH (21:59)
[2019-04-06] MEDS: LISINOPRIL 20 MG TAB PO SCH (21:59)
[2019-04-06] MEDS: ASPIRIN 81 MG PO SCH (21:59)
[2019-04-06] MEDS: INSULIN DETEMIR (LEVEMIR) 100 UNIT/ML SYR SQ SCH (21:59)
[2019-04-07] MEDS: ceFAZolin IN SWFI 2 GM/20 ML SYRINGE IVP SCH ×3 (00:27→15:19)
[2019-04-07 07:13] LABS: Glucose,Whole Blood 98 mg/dL (75-99)
[2019-04-07] MEDS: INSULIN ASPART (NovoLOG) 100 UNIT/ML VIAL SQ SCH ×2 (07:23→12:59)
[2019-04-07] MEDS: hydrALAZINE HCL 50 MG TAB PO SCH (07:58)
[2019-04-07] MEDS: FUROSEMIDE 40 MG TAB PO SCH (07:58)
[2019-04-07] MEDS: MULTIVITAMINS, THERA 1 EACH TAB PO SCH (07:58)
[2019-04-07] MEDS: COLLAGENASE 250 UNIT/GM OINTMENT 30 GM TUBE TOPICAL SCH (07:58)
[2019-04-07] MEDS ORDERED: hydrALAZINE HCL 50 MG TAB PO ONE (10:45)
[2019-04-07 12:06] LABS: Glucose,Whole Blood 184 mg/dL (75-99)
--- NOTE | 2019-04-07 13:51 | P.ARTDOP ---
Arterial Doppler LOWER EXTREMITY ARTERIAL DOPPLER: DATE OF SERVICE: 04/03/2019 Reason for study: Foot ulcers. Doppler waveforms: Multiphasic bilaterally throughout. Pulse volume recording: []. Pressure gradients: None. Ankle-brachial indices: Cannot occlude. Toe pressures: 158 on the right, 190 on the left Impression: Normal flow pattern. Total perfusion excellent. Suspicious that nonoccluding ankle pressures related to calcific wall disease which is not hemodynamically significant..
--- NOTE | 2019-04-07 14:04 | DS ---
DISCHARGE SUMMARY CHIEF COMPLAINT: Infected diabetic ulcers in bottom of both heels. HISTORY OF PRESENT ILLNESS AND PHYSICAL EXAM: Details of this man's history and physical can be found in the initial workup. LABORATORY STUDIES: While he was in a hospital, he had laboratory studies, details of which can be found in the laboratory section of his chart. COURSE IN HOSPITAL: After admission, he was placed on bedrest, started as intravenous fluids and seen by Vascular Surgery and wound care team as well as Infectious Disease. He was taken for debridement of both heels. Because of the necessity to avoid pressure on these areas, arrangements were made for him to go to a skilled nursing and he will be transferred there on 2019. He will be on long-term IV antibiotics and frequent dressing changes with ambulation, immobilization of the foot and ankle. FINAL DIAGNOSES: 1. Infected diabetic ulcers of both heels. 2. Insulin-dependent diabetes mellitus. 3. Hypertension. OPERATIONS: Debridement heels. CONSULTATION: Vascular Surgery, Infectious Disease. He is improved. MMODL / IJN: [id number] /
[2019-04-07 14:30] VITALS: BP 161/92; PULSE 83; RESP 16; TEMP 98
[2019-04-07] MEDS ORDERED: hydrALAZINE HCL 50 MG TAB PO SCH (16:00)
--- NOTE | 2019-04-07 17:40 | PN ---
PROGRESS NOTE DATE OF SERVICE: 04/06/2019 CHIEF COMPLAINT: Necrotic diabetic ulcers on the bottoms of both heels. HISTORY OF PRESENT ILLNESS: This gentleman was debrided and doing well, and he will probably go to the intermediate today. PHYSICAL EXAMINATION: Examination is unchanged. The bottoms of the heels have been debrided and the bases are viable and somewhat purulent. IMPRESSION: 1. Bilateral necrotic and infected diabetic ulcers of heels. 2. Diabetes. PLAN: Discharge to intermediate today. MMODL / IJN: [id number] /
== END 2019-04-07 17:09 | DRG 622 ==
LOC: EC 16:45 → 3NMEDONC 19:37 → 4MS4W 04-04 18:23
PROVIDERS: ADMIT Family Medicine; ATTEND Family Medicine
PROC: 0JBQ0ZZ Excision of Right Foot Subcutaneous Tissue and Fascia, Open Approach (ICD-10-PCS; 2019-04-05)
PROC: 0JBR0ZZ Excision of Left Foot Subcutaneous Tissue and Fascia, Open Approach (ICD-10-PCS; principal; 2019-04-05 07:30)
PROC: 02HV33Z Insertion of Infusion Device into Superior Vena Cava, Percutaneous Approach (ICD-10-PCS; 2019-04-06)
DX: E11.621 Type 2 diabetes mellitus with foot ulcer (principal); L89.623 Pressure ulcer of left heel, stage 3; L89.613 Pressure ulcer of right heel, stage 3; L97.423 Non-pressure chronic ulcer of left heel and midfoot with necrosis of muscle; L97.413 Non-pressure chronic ulcer of right heel and midfoot with necrosis of muscle; M86.172 Other acute osteomyelitis, left ankle and foot; E11.42 Type 2 diabetes mellitus with diabetic polyneuropathy; E11.65 Type 2 diabetes mellitus with hyperglycemia; E11.69 Type 2 diabetes mellitus with other specified complication; B35.1 Tinea unguium; B35.3 Tinea pedis; E66.9 Obesity, unspecified; E78.5 Hyperlipidemia, unspecified; I10 Essential (primary) hypertension; L84 Corns and callosities; M10.9 Gout, unspecified; L40.9 Psoriasis, unspecified; B95.8 Unspecified staphylococcus as the cause of diseases classified elsewhere; Z79.84 Long term (current) use of oral hypoglycemic drugs; Z79.82 Long term (current) use of aspirin; Z79.899 Other long term (current) drug therapy; Z90.49 Acquired absence of other specified parts of digestive tract; Z82.5 Family history of asthma and other chronic lower respiratory diseases
CPT/HCPCS: 36415; 36573; 78315; 80053; 85025; 87040; 87070; 87077; 87186; 87205; 90715; 93923; 96374; 99285

== ENCOUNTER 2022-08-20 07:26 | Day surgery (SDC) | payer MEDICARE, OTHER ==
[2022-08-16 16:07] VITALS: BMI 38.5
[~2022-08-20 07:26] MED LIST: LACTATED RINGERS 1,000 ML IV SCH; LIDOCAINE 1% (10MG/ML) FOR IV START INTRADERMA PRN; ONDANSETRON 4 MG/2 ML VIAL IVP PRN
[2022-08-20 08:05] VITALS: TEMP 98.1
[2022-08-20 08:18] LABS: Glucose,Whole Blood 174 mg/dL (70-110)
[2022-08-20] MEDS ORDERED: LIDOCAINE 2% INJ 20 MG/ML (2 ML VIAL) ONE (08:29)
[2022-08-20] MEDS ORDERED: PROPOFOL 10 MG/ML 20 ML VIAL IV ONE (08:29)
--- NOTE | 2022-08-20 08:30 | P.GSHP ---
History of Present Illness H&P Date: 08/20/22 Chief Complaint: Colon polyps, blood in stool 71-year-old male with personal history of colon polyps. Last colonoscopy 4-5 years ago. Recently had stool studies showing fecal occult blood. Does not visualize any blood. No dysphagia. No reflux. Past Medical History Past Medical History: Diabetes Mellitus, Hyperlipidemia, Hypertension, Skin Disorder Additional Past Medical History / Comment(s): gout, OCCASIONAL PALPITATIONS, PSORIASIS History of Any Multi-Drug Resistant Organisms: None Reported Past Surgical History: Cholecystectomy, Orthopedic Surgery Additional Past Surgical History / Comment(s): ermias hand- TENDON/LIGAMENT SX ,LT knee scope Past Anesthesia/Blood Transfusion Reactions: No Reported Reaction Past Psychological History: No Psychological Hx Reported Smoking Status: Never smoker Past Alcohol Use History: None Reported Past Drug Use History: None Reported - Past Family History Father Additional Family Medical History / Comment(s): emphysema Mother Additional Family Medical History / Comment(s): age 92 from old old Medications and Allergies Home Medications Medication Instructions Recorded Confirmed Type allopurinoL [Allopurinol] 300 mg PO HS 11/13/15 08/16/22 History metFORMIN HCL [Glucophage] 1,000 mg PO BID 11/13/15 08/16/22 History Atorvastatin [Lipitor] 40 mg PO HS 04/02/19 08/16/22 History Ergocalciferol (Vitamin D2) 50,000 unit PO Q30D 04/02/19 08/16/22 History [Vitamin D2] Furosemide [Lasix] 40 mg PO DAILY 04/02/19 08/16/22 History lisinopriL 40 mg PO HS 04/02/19 08/16/22 History hydrALAZINE HCL [Apresoline] 100 mg PO TID #90 tab 04/07/19 08/16/22 Rx Dulaglutide [Trulicity] 0.75 mg SQ Q7D 08/16/22 08/16/22 History Glimepiride [Amaryl] 4 mg PO DAILY 08/16/22 08/16/22 History Potassium Chloride [K-Tab ER] 20 meq PO DAILY 08/16/22 08/16/22 History Spironolactone 25 mg PO DAILY 08/16/22 08/16/22 History amLODIPine [Norvasc] 5 mg PO DAILY 08/16/22 08/16/22 History Allergies Allergy/AdvReac Type Severity Reaction Status Date / Time Horse/Equine Containing Allergy Unknown Verified 08/20/22 07:50 Products Childhood Surgical - Exam Vital Signs Temp Pulse Resp BP Pulse Ox 98.1 F 110 H 16 150/72 94 L 08/20/22 08:04 08/20/22 08:04 08/20/22 08:04 08/20/22 08:04 08/20/22 08:04 Physical exam: General: Well-developed, well-nourished HEENT: Normocephalic, sclerae nonicteric Abdomen: Nontender, nondistended Extremities: No edema Neuro: Alert and oriented Results - Labs Abnormal Lab Results - Last 24 Hours (Table) 08/20/22 Range/Units 08:10 POC Glucose (mg/dL) 174 H (70-110) mg/dL Assessment and Plan (1) Blood in stool Narrative/Plan: Will proceed with upper and lower endoscopy at this time. Current Visit: Yes Status: Acute Code(s): K92.1 - MELENA SNOMED Code(s): 347491539
--- NOTE | 2022-08-20 08:58 | P.PCN ---
Date of Procedure: 08/20/22 Procedure(s) Performed: PREOPERATIVE DIAGNOSIS: Blood in stool, colon polyps POSTOPERATIVE DIAGNOSIS: Mild duodenitis, mild gastritis, colon polyps, diverticulosis PROCEDURE: 1. EGD with biopsy 2. Colonoscopy with snare polypectomy ANESTHESIA: [facility] [place] SURGEON: Pérez Topete M.D. SPECIMENS: Antrum, duodenum, polyps ENDOSCOPIC PROCEDURE: The patient was on the endoscopy table in the left decubitus position. The Olympus gastroscope was inserted into the oropharynx and passed under direct visualization to the region of the third portion of the duodenum. From that point the scope was slowly withdrawn inspecting all surfaces carefully. There was mild duodenitis present. Biopsies were taken. The pylorus was widely patent. The stomach was carefully inspected. There was mild gastritis present. A biopsy of the antrum took place to rule out H. pylori. Retroflexion revealed a normal hiatus. The esophagus was then carefully examined. There were no neoplastic inflammatory or polypoid lesions throughout the visualized esophagus. The patient was kept on the endoscopy table in the left decubitus position. The Olympus colonoscope was inserted into the anus and passed under direct visualization to the base of the cecum. The appendiceal orifice was visualized. From that point the scope was slowly withdrawn inspecting all surfaces carefully. There were no neoplastic inflammatory or polypoid lesions throughout the cecum. In the ascending colon a small polyp was seen and removed using the snare cautery technique. Another similar polyp was seen and removed in the transverse colon and also one in the descending colon. Sigmoid and the rectum was free of any neoplastic polypoid lesions. The patient had extensive diverticulosis throughout the colon. Digital rectal examination was normal. The patient was taken to the recovery room in stable condition per anesthesia guidelines. RECOMMENDATIONS: Await biopsy results. Anticipate repeat colonoscopy in 5 years.
[2022-08-20 09:35] VITALS: BP 152/78; PULSE 95; RESP 15
== END 2022-08-20 09:48 | disposition home or self-care (01) ==
LOC: ORWHC2ENDO 07:26
PROVIDERS: ATTEND Surgery
DX: D12.2 Benign neoplasm of ascending colon (principal); D12.3 Benign neoplasm of transverse colon; D12.4 Benign neoplasm of descending colon; K29.50 Unspecified chronic gastritis without bleeding; R19.5 Other fecal abnormalities; E11.9 Type 2 diabetes mellitus without complications; E78.5 Hyperlipidemia, unspecified; I10 Essential (primary) hypertension; M10.9 Gout, unspecified
CPT/HCPCS: 88305; 45385; 43239; J2704; J2001